=== PATIENT | male | born 1985 | race Caucasian/White ===

== ENCOUNTER → 2023-12-16 | Outpatient (CLI) | payer MEDICAID ==
[2023-12-16 08:18] VITALS: BP 128/80; PULSE 83; RESP 16
--- NOTE | 2023-12-18 07:52 | P.PAINPG ---
PQRS Measure Charge Sheet Comment: HISTORY OF PRESENT ILLNESS: A 38 yr old male as a referral from Wendy ALMAGUER presents today w severe and chronic LBP since Sep 2023 secondary to radiculopathy, spondylosis and facet arthropathy without myelopathy for evaluation. Pt states pain level is provoked at 6 /10 in intensity, constant, localized in the lumbar spine, predominantly axial, achy in character w occasional shooting pain towards the BLEs. Pain is provoked by sitting/ standing for periods > 20 min. Pain is alleviated by physician guided home exercises 4-5 times weekly since Sep 2023, heat, ice, medications (Tramadol #90, Mobic), topical BioFreeze, repositioning and rest . PMH: OA, HTN, Hyperlipidemia, Autism, Sleep Apnea PSH: BL Knee Arthroscopy, Carpal Tunnel, Masectomy SH: Tobacco use, No ETOH abuse, No illicit drug use FH: Fa- Suicide, Mental Health History. Grandmother- CAD All: See list Meds: See list incl Tramadol #90 monthly REVIEW OF ORGAN SYSTEMS: CONSTITUTIONAL: No fevers or chills. No recent weight loss. NEUROLOGICAL: + numbness and tingling along the distal extremities. No seizure disorders or headaches. MUSCULOSKELETAL: + pain PSYCHIATRIC: Denies current depression or suicidal thoughts. Physical Examinations : Constitutional : Cooperative , not in acute distress . Neurologic : Cranial nerve II to XII intact. No focal neurological deficits. Psychiatric : alert & oriented x 3. Matching mood & appropriate affect. Judgment & insight intact. Musculoskeletal : Cervical Spine Motor strength in the deltoid and biceps: Normal right side. Normal Left side Motor strength biceps and the wrist extensors: Normal right side . Normal left side Motor strength in the triceps muscle: Normal right side. Normal left side Deep tendon reflexes: Normal at the biceps. Normal at Brachioradialis. Normal at triceps Vertebral body tenderness to deep palpation over Cervical facet loading test: positive bilaterally Spurling test: positive bilaterally Neck distraction test: positive bilaterally Darian sign: positive bilaterally Lumbar spine Motor strength lower extremities ,thigh and legs 5/5 Right side , 5/5 Left side Deep tendon reflexes : Normal Knee Jerk. Normal Ankle Jerk Vertebral body tenderness over L4 Chapin Test positive BL L4-L5 Lumbar facet Loading Test: positive Right / positive Left Range of motion of the lumbar spine Flexion 30 degrees, extension 10 degrees Straight Leg Raise test: Left/ Right positive at degrees Francis test: positive right / positive left. Severe tenderness over the Sacroiliac joint on the Right / Left sides Gaenslen test: positive bilaterally Seated flexion test: positive bilaterally. Sacral spine : Severe tenderness over the Sacroiliac joint: right side / left side Range of motion: Flexion of the lumbar spine <60 degrees Range of motion: Extension of the lumbar spine <20 degrees Gaenslen's Test positive Francis test: positive right side / left side Thigh Thrust Test Sacral Thrust Test Imaging: MRI non contrast lumbar spine from 11/12/23 reviewed Assessment/ Plan : L3-L5 broad based disc bulges Recommendation of IRIS L4-L5 #1. Risks, benefits of procedure discussed and patient verbalized understanding. Admits to anti- coagulant use or medical history of diabetes. Protocol for discontinuation/ continuation of medications mitul procedure discussed. All questions answered. I have spent greater than 30 minutes on patient care today. Dr Lara was available by phone for the evaluation of this patient. The time was used to review the medical records including relevant urine studies and Prescription history (MAPs), review of the available imaging, evaluation and examination of the patient, coordination of care with the medical staff and if applicable referring physicians, as well as creation of the medical record Controlled Substance Measures - Controlled Substance Measures Is patient prescribed a controlled substance at discharge?: No
== END ==
LOC: PNWHC3 07:46
PROVIDERS: ATTEND Specialist
DX: M51.26 Other intervertebral disc displacement, lumbar region (principal)
CPT/HCPCS: 99202

== ENCOUNTER 2024-01-21 08:32 | Day surgery (SDC) | payer MEDICAID ==
[2024-01-14 16:36] VITALS: BMI 42.7
[~2024-01-21 08:32] MED LIST: LACTATED RINGERS 1,000 ML IV SCH
[2024-01-21 08:52] VITALS: TEMP 97.3
[2024-01-21] MEDS ORDERED: IOPAMIDOL M200 10 ML VIAL ONE (09:24)
[2024-01-21] MEDS ORDERED: methylPREDNISolone ACETATE 80 MG/ML 1 ML VIAL ONE (09:24)
--- NOTE | 2024-01-21 09:30 | P.PCN ---
Date of Procedure: 01/21/24 Procedure(s) Performed: PREOPERATIVE DIAGNOSIS: 1- Lumbar Degenerative Disc Diseases 2-Lumbar radiculopathy POSTOPERATIVE DIAGNOSIS: 1-lumbar degenerative disc disease. 2-lumbar radiculopathy. PROCEDURE 1. Lumbar epidural steroid injection under fluoroscopic guidance at the L4-5 level. (Fluoroscopy imaging was available in radiology department) 2. Lumbar epidurogram. ANESTHESIA: Lidocaine 1% 3 and then only. EBL: Minimal PROCEDURE INDICATION: The patient with low back pain and radiculitis symptoms unresponsive to conservative treatment. Fluoroscopy was used to optimize visualization of the needle placement and to maximize safety. PROCEDURE DESCRIPTION / TECHNIQUE: The patient was seen and identified in the preoperative area. Risks, benefits, complications including but not limited to infections ,bleeding ,allergic reaction to the medications ,nerve damage and not complete pain releife , and alternatives were discussed with the patient. The patient agreed to proceed with the procedure and signed the consent, and vital signs were stable. Patient was taken to the OR and time out was completed. The patient was placed in the prone position on procedure table and a pillow was placed under the abdomen to reduce lumbar lordosis. The lumbosacral area was prepped and draped in the usual sterile fashion.ere closely monitored during the procedure. Vital signs was monitered during the entire procedure. Using anterior-posterior fluoroscopy, the L4-5 interlaminar space was identified and the skin over this site was marked and then infiltrated with 1% lidocaine subcutaneously. Subsequently, a 20-gauge Tuohy epidural needle was inserted and advanced toward the epidural space using the ``Loss of resistance technique and guided by AP and lateral fluoroscopy. The correct needle position in the epidural space was verified with the injection of 2 mL of the water soluble contrast dye Isovue 200 contrast and observing an excellent epidurogram with the epidural spread of the dye, after negative aspiration for blood and CSF and in the absence of paresthesias. Again after negative aspiration, a 6 ml mixture containing 80 mg of Depo-medrol ( Preservetive Free ), and 2 ml of preservative free Normal Saline, and 2 ml of preservative free lidocaine 1% solution was injected and a washout of epidurogram was seen. Needle was withdrawn intact, skin was cleansed, and bandages were applied. COMPLICATIONS: None DISPOSITION / PLANS: The patient was placed in a supine position and transferred to the recovery area in a stable condition for observation. There was no evidence of lower extremity motor or sensory deficit after the procedure. Patient was discharged from the recovery room after meeting discharge criteria. Home discharge instructions were given to the patient by the staff. The patient was reexamined prior to discharge. The patient will schedule a follow up in the clinic in 2-4 weeks.
[2024-01-21 09:51] VITALS: BP 124/60; PULSE 68; RESP 18
--- NOTE | 2024-01-21 10:41 | FL ---
EXAMINATION TYPE: FL guided pain mgmt statistic DATE OF EXAM: 01/21/2024 9:33 AM COMPARISON: Pre Operative Images if available both CT/MRI or plain film CLINICAL INDICATION: Male, 38 years old with history of PAIN; TECHNIQUE: FL guided pain mgmt statistic, multiple fluoroscopic images provided for procedure. Total fluoroscopy time: 2.0 seconds Total submitted images to PACS: 1 DAP: 0.26648 mGym2 Gycm2 uGym2 cGycm2 or equivalent. FINDINGS: Fluoroscopic images during injection for pain management demonstrate multilevel degeneration changes throughout the spine. No evidence for fracture. No acute process identified. IMPRESSION: 1. No evidence for intraoperative complication. 2. Please see the operative/procedural note for further details. [facility], , 01/21/2024 10:39 AM
== END 2024-01-21 10:05 | disposition home or self-care (01) ==
LOC: ORPAIN 08:32
PROVIDERS: ATTEND Specialist
DX: M51.16 Intervertebral disc disorders with radiculopathy, lumbar region (principal); Z88.0 Allergy status to penicillin
CPT/HCPCS: 62323; Q9966; J1010

== ENCOUNTER → 2024-02-20 | Outpatient (CLI) | payer MEDICAID ==
[2024-02-20 08:14] VITALS: BP 145/79; PULSE 81; RESP 16; TEMP 97.5
--- NOTE | 2024-02-20 13:34 | P.PAINPG ---
Objective - Vital Signs Vital signs: Vital Signs Temp 97.5 F L 02/20/24 08:05 Pulse 81 02/20/24 08:05 Resp 16 02/20/24 08:05 BP 145/79 02/20/24 08:05 Pulse Ox 96 02/20/24 08:05 FiO2 Intake & Output 02/19/24 02/20/24 02/20/24 18:59 06:59 18:59 Weight 117.934 kg PQRS Measure Charge Sheet Mode of Arrival: Ambulatory Comment: HISTORY OF PRESENT ILLNESS: A 38 yr old male presents today w severe and chronic LBP since Sep 2023 secondary to radiculopathy, spondylosis and facet arthropathy without myelopathy for evaluation s/p IRIS L4-L5 #1. Pt states he experienced 60% pain relief x 2-3 wks s/p procedure. Pt states pain level is provoked at 6 /10 in intensity, constant, localized in the lumbar spine, predominantly axial, achy in character w occasional shooting pain towards the BLEs. Pain is provoked by sitting/ standing for periods > 20 min. Pain is alleviated by physician guided home exercises 4-5 times weekly since Sep 2023, heat, ice, medication, topical, repositioning and rest . Oswestry axial score of 18. Interventional procedures include IRIS L4-L5 x1 Medications include Tramadol #90, BioFreeze REVIEW OF ORGAN SYSTEMS: CONSTITUTIONAL: No fevers or chills. No recent weight loss. NEUROLOGICAL: + numbness and tingling along the distal extremities. No seizure disorders or headaches. MUSCULOSKELETAL: + pain PSYCHIATRIC: Denies current depression or suicidal thoughts. Physical Examinations : Constitutional : Cooperative , not in acute distress . Neurologic : Cranial nerve II to XII intact. No focal neurological deficits. Psychiatric : alert & oriented x 3. Matching mood & appropriate affect. Judgment & insight intact. Musculoskeletal : Cervical Spine Motor strength in the deltoid and biceps: Normal right side. Normal Left side Motor strength biceps and the wrist extensors: Normal right side . Normal left side Motor strength in the triceps muscle: Normal right side. Normal left side Deep tendon reflexes: Normal at the biceps. Normal at Brachioradialis. Normal at triceps Vertebral body tenderness to deep palpation over Cervical facet loading test: positive bilaterally Spurling test: positive bilaterally Neck distraction test: positive bilaterally Darian sign: positive bilaterally Lumbar spine Motor strength lower extremities ,thigh and legs 5/5 Right side , 5/5 Left side Deep tendon reflexes : Normal Knee Jerk. Normal Ankle Jerk Vertebral body tenderness over L4 Chapin Test positive BL L4-L5 Lumbar facet Loading Test: positive Right / positive Left Range of motion of the lumbar spine Flexion 30 degrees, extension 10 degrees Straight Leg Raise test: Left/ Right positive at degrees Francis test: positive right / positive left. Severe tenderness over the Sacroiliac joint on the Right / Left sides Gaenslen test: positive bilaterally Seated flexion test: positive bilaterally. Sacral spine : Severe tenderness over the Sacroiliac joint: right side / left side Range of motion: Flexion of the lumbar spine <60 degrees Range of motion: Extension of the lumbar spine <20 degrees Gaenslen's Test positive Francis test: positive right side / left side Thigh Thrust Test Sacral Thrust Test Imaging: MRI non contrast lumbar spine from 11/12/23 reviewed Assessment/ Plan : L3-L5 broad based disc bulges Recommendation of interlaminar IRIS L4-L5 #2. Risks, benefits of procedure discussed and patient verbalized understanding. Admits to anti- coagulant use or medical history of diabetes. Protocol for discontinuation/ continuation of medications mitul procedure discussed. All questions answered. I have spent greater than 30 minutes on patient care today. Dr Lara was available by phone for the evaluation of this patient. The time was used to review the medical records including relevant urine studies and Prescription history (MAPs), review of the available imaging, evaluation and examination of the patient, coordination of care with the medical staff and if applicable referring physicians, as well as creation of the medical record - Pain Location Back Non-Pharmacological Interventions: Position/Reposition Pharmacological Interventions: Discuss Pain Med Options Neck Pharmacological Interventions: Discuss Pain Med Options PQRS Narrative: Blood Pressure 145/79 Pain Intensity [Neck] 5 Pain Intensity [Back] 3 Scale Used Numeric (1 - 10) Hx Alcohol Use (MH) No Home Medications: Ambulatory Orders Atorvastatin [Lipitor] 20 mg PO DAILY 01/14/24 Levocetirizine Dihydrochloride [Xyzal] 5 mg PO HS 01/14/24 Meloxicam [Mobic] 15 mg PO DAILY 01/14/24 Testosterone Cypionate [Depo-Testosterone] 40 mg IM DIRECTED 01/14/24 Topiramate [Topiramate ER] 200 mg PO HS 01/14/24 Valsartan/Hydrochlorothiazide [Valsartan-Hctz 80-12.5 mg Tab] 1 each PO DAILY 01/14/24 Vilazodone HCl 40 mg PO DAILY 01/14/24 traMADol HCL 50 mg PO DAILY 01/14/24 valACYclovir HCL [Valacyclovir] 500 mg PO DAILY 01/14/24 Controlled Substance Measures - Controlled Substance Measures Is patient prescribed a controlled substance at discharge?: No
== END ==
LOC: PNWHC3 07:51
PROVIDERS: ATTEND Specialist
DX: M51.369 Other intervertebral disc degeneration, lumbar region without mention of lumbar back pain or lower extremity pain (principal); Z88.0 Allergy status to penicillin
CPT/HCPCS: 99211

== ENCOUNTER → 2024-03-06 | Day surgery (SDC) | payer MEDICAID ==
[2024-03-03 16:25] VITALS: BMI 42.3
[~2024-03-06] MED LIST changes: +IOPAMIDOL M200 10 ML VIAL ONE; +methylPREDNISolone ACETATE 80 MG/ML 1 ML VIAL ONE
[2024-03-06 07:45] VITALS: TEMP 97.8
--- NOTE | 2024-03-06 08:12 | P.PCN ---
Date of Procedure: 03/06/24 (t) Procedure(s) Performed: PREOPERATIVE DIAGNOSIS: 1- Lumbar Degenerative Disc Diseases 2-Lumbar radiculopathy POSTOPERATIVE DIAGNOSIS: 1-lumbar degenerative disc disease. 2-lumbar radiculopathy. PROCEDURE 1. Lumbar epidural steroid injection under fluoroscopic guidance at the L4-5 level. (Fluoroscopy imaging was available in radiology department) 2. Lumbar epidurogram. ANESTHESIA: Lidocaine 1% 3 and then only. EBL: Minimal PROCEDURE INDICATION: The patient with low back pain and radiculitis symptoms unresponsive to conservative treatment. Fluoroscopy was used to optimize visualization of the needle placement and to maximize safety. PROCEDURE DESCRIPTION / TECHNIQUE: The patient was seen and identified in the preoperative area. Risks, benefits, complications including but not limited to infections ,bleeding ,allergic reaction to the medications ,nerve damage and not complete pain releife , and alternatives were discussed with the patient. The patient agreed to proceed with the procedure and signed the consent, and vital signs were stable. Patient was taken to the OR and time out was completed. The patient was placed in the prone position on procedure table and a pillow was placed under the abdomen to reduce lumbar lordosis. The lumbosacral area was prepped and draped in the usual sterile fashion.ere closely monitored during the procedure. Vital signs was monitered during the entire procedure. Using anterior-posterior fluoroscopy, the L4-5 interlaminar space was identified and the skin over this site was marked and then infiltrated with 1% lidocaine subcutaneously. Subsequently, a 20-gauge Tuohy epidural needle was inserted and advanced toward the epidural space using the ``Loss of resistance technique and guided by AP and lateral fluoroscopy. The correct needle position in the epidural space was verified with the injection of 2 mL of the water soluble contrast dye Isovue 200 contrast and observing an excellent epidurogram with the epidural spread of the dye, after negative aspiration for blood and CSF and in the absence of paresthesias. Again after negative aspiration, a 6 ml mixture containing 80 mg of Depo-medrol ( Preservetive Free ), and 2 ml of preservative free Normal Saline, and 2 ml of preservative free lidocaine 1% solution was injected and a washout of epidurogram was seen. Needle was withdrawn intact, skin was cleansed, and bandages were applied. COMPLICATIONS: None DISPOSITION / PLANS: The patient was placed in a supine position and transferred to the recovery area in a stable condition for observation. There was no evidence of lower extremity motor or sensory deficit after the procedure. Patient was discharged from the recovery room after meeting discharge criteria. Home discharge instructions were given to the patient by the staff. The patient was reexamined prior to discharge. The patient will schedule a follow up in the clinic in 2-4 weeks.
[2024-03-06 08:19] VITALS: RESP 16
--- NOTE | 2024-03-06 08:28 | FL ---
EXAMINATION TYPE: FL guided pain mgmt statistic DATE OF EXAM: 03/06/2024 8:19 AM COMPARISON: Pre Operative Images if available both CT/MRI or plain film CLINICAL INDICATION: Male, 38 years old with history of LESI; TECHNIQUE: FL guided pain mgmt statistic, multiple fluoroscopic images provided for procedure. Total fluoroscopy time: 1.8 seconds Total submitted images to PACS: 1 DAP: 0.91402 mGym2 Gycm2 uGym2 cGycm2 or equivalent. FINDINGS: Fluoroscopic images during injection for pain management demonstrate multilevel degeneration changes throughout the spine. No evidence for fracture. No acute process identified. IMPRESSION: 1. No evidence for intraoperative complication. 2. Please see the operative/procedural note for further details. [facility], , 03/06/2024 8:25 AM
[2024-03-06 08:31] VITALS: BP 119/74; PULSE 76
== END ==
LOC: ORPAIN 07:12
PROVIDERS: ATTEND Specialist
DX: M51.16 Intervertebral disc disorders with radiculopathy, lumbar region (principal); Z88.0 Allergy status to penicillin
CPT/HCPCS: 81025; 62323; Q9966; J1010

== ENCOUNTER 2024-04-14 08:40 | Day surgery (SDC) | payer MEDICAID ==
[~2024-04-14 08:40] MED LIST changes: -IOPAMIDOL M200 10 ML VIAL ONE; -methylPREDNISolone ACETATE 80 MG/ML 1 ML VIAL ONE
[2024-04-14 09:22] VITALS: RESP 16; TEMP 97.8
[2024-04-14] MEDS: LACTATED RINGERS 1,000 ML IV SCH (09:29)
[2024-04-14] MEDS: IV FLUID CONTINUATION 1,000 ML IV ONE ×2 (09:30→10:17)
[2024-04-14] MEDS ORDERED: MIDAZOLAM 2 MG/2 ML VIAL ONE (09:49)
[2024-04-14] MEDS ORDERED: ROPIVACAINE 5MG/ML 20ML VIAL ONE (09:49)
[2024-04-14] MEDS ORDERED: DEXAMETHASONE SOD PHOSPHATE 10 MG/ML 1 ML VIAL ONE (09:49)
[2024-04-14] MEDS ORDERED: fentaNYL (PF) 50 MCG/ML 2 ML AMP ONE (09:49)
--- NOTE | 2024-04-14 10:15 | P.PCN ---
Date of Procedure: 04/14/24 Description of Procedure: PREOPERATIVE DIAGNOSIS: Cervical Facet syndrome /cervical spondylosis without myelopathy. POSTOPERATIVE DIAGNOSIS: Cervical Facet syndrome /cervical spondylosis without myelopathy. PROCEDURES: Left Radiofrequency thermocoagulation of C3-C4, and C4-C5 medial branches, with fluoroscopic guidance, SURGEON: Jack Mayfield ANESTHESIA: Local 3 mL of 1% lidocaine, and IV sedation: Versed 2mg , and [id number] mcg Sedation supervision start time : 948 sedation Supervision end time: 1007 EBL: None Specimen removed: None Fluoroscopic image: Saved to electronic medical records. PROCEDURE INDICATION: The patient returns for cervical RFTC following previous positive diagnostic nerve blocks. Patient tried conservative therapy with marginal pain relief. PROCEDURE DESCRIPTION: The patient was seen and identified in the preoperative area. Risks, benefits, complications, and alternatives were discussed with the patient. The patient agreed to pursue with the procedure and signed the consent. IV was started and vital signs were stable. Patient was taken to the procedure room and time out was completed. The patient was placed in the prone position on the procedure table and cervical area was prepped with ChloraPrep 2 and draped in the usual sterile fashion. Critical pause was taken. Vital signs were closely monitored during the procedure. Using AP fluoroscopy, the waists of lateral margins of C3, C4, and C5 were identified and localized with 1 mL of 1% lidocaine. Used 20 -bx radiofrequency cannula with a 10-mm active tip. Using the posterior approach, radiofrequency cannulas were guided by anterior posterior fluoroscopy to the waists of the lateral masses of C3, C4, C5 Needle tip position was confirmed at the centroid of the trapezoids of C3, C4, C5 with lateral fluoroscopy. Each site then underwent motor testing was done at 2 Hz and 0 to 2.5 volt with local stimulation, but no radicular symptoms down the arm. After negative aspiration for blood and CSF , 0.5 mill of block solution were given, and then C3, C4,C5 sites underwent radiofrequency thermocoagulation at 80 degrees celsius for 90 seconds. After thermocoagulation, the C3, C4, C5 . Block solution contained 10 MG of dexamethasone and 3 mL of preservative-free ropivacaine 0. 5%. After radiofrequency ablation cannulas were retracted approximately 1 cm and then upon further withdrawal of the needles, the skin was infiltrated with 1 mL of 0.5% ropivacaine at each level for longer skin pain relief. Skin was cleansed and bandages were applied. COMPLICATIONS: None. DISPOSITION / PLANS: The patient was placed in a supine position and transferred to the recovery area in a stable condition for observation and was discharged from the recovery room after meeting discharge criteria. Home discharge instructions given to the patient by the staff. The patient was reexamined prior to discharge. The patient will schedule a left side cervical radiofrequency ablation in 4 weeks.
--- NOTE | 2024-04-14 10:29 | FL ---
EXAMINATION TYPE: FL guided pain mgmt statistic DATE OF EXAM: 04/14/2024 CLINICAL INDICATION: Male, 38 years old with history of RF CERVICAL; PHH, neck pain. TECHNIQUE: Fluoroscopy. COMPARISON: None. FINDINGS: Fluoroscopic guidance was provided during pain relief procedure performed by Dr. Mayfield. A total of 9.5 seconds of fluoroscopic time was utilized during the procedure and 3 spot images are acquired. Images acquired shows needle localization at Several levels in the cervical spine. Facet ar thropathy is suspected. Total DAP: 0.66461 mGym2. IMPRESSION: As Above. [facility], , 04/14/2024 10:27 AM
[2024-04-14 10:33] VITALS: BP 136/85; PULSE 67
== END 2024-04-14 10:47 | disposition home or self-care (01) ==
LOC: ORPAIN 08:40
DX: M47.812 Spondylosis without myelopathy or radiculopathy, cervical region (principal); Z88.0 Allergy status to penicillin; Z79.1 Long term (current) use of non-steroidal anti-inflammatories (NSAID)
CPT/HCPCS: 81025; 64633; 64634; 99152; J2250; J1100; J3010; J2795

== ENCOUNTER → 2024-05-04 | Outpatient (CLI) | payer MEDICAID ==
[2024-05-04 08:05] VITALS: BP 138/84; PULSE 103; RESP 16; TEMP 96.7
--- NOTE | 2024-05-04 15:14 | P.PAINPG ---
PQRS Measure Charge Sheet Comment: HISTORY OF PRESENT ILLNESS: A 38 yr old male presents today w severe and chronic LBP and neck pain since Sep 2023 secondary to radiculopathy, spondylosis and facet arthropathy without myelopathy for evaluation s/p L RFA C3-C4/C4-C5. Pt states he experienced 100% pain relief s/p procedure. Pt states pain level is provoked at 4 /10 in intensity, intermittent, localized in the L cervical spine, predominantly axial, achy in character without shooting pain. Pain is provoked by hyperextension. Pain is alleviated by physician guided home stretches daily since Spring 2022 (cervical), physician guided home exercises 4-5 times weekly since Sep 2023 (lumbar), heat, ice, medication, topical, repositioning and rest . Cervical disability score of 22. Interventional procedures include IRIS L4-L5 x1, L RFA C3-C5 x2 (05/10, 04/14) Medications include Tramadol #90, BioFreeze REVIEW OF ORGAN SYSTEMS: CONSTITUTIONAL: No fevers or chills. No recent weight loss. NEUROLOGICAL: + numbness and tingling along the distal extremities. No seizure disorders or headaches. MUSCULOSKELETAL: + pain PSYCHIATRIC: Denies current depression or suicidal thoughts. Physical Examinations : Constitutional : Cooperative , not in acute distress . Neurologic : Cranial nerve II to XII intact. No focal neurological deficits. Psychiatric : alert & oriented x 3. Matching mood & appropriate affect. Judgment & insight intact. Musculoskeletal : Cervical Spine Motor strength in the deltoid and biceps: Normal right side. Normal Left side Motor strength biceps and the wrist extensors: Normal right side . Normal left side Motor strength in the triceps muscle: Normal right side. Normal left side Deep tendon reflexes: Normal at the biceps. Normal at Brachioradialis. Normal at triceps Vertebral body tenderness to deep palpation over Cervical facet loading test: positive BL C3-C4/ C4-C5 Spurling test: positive bilaterally Neck distraction test: positive bilaterally Darian sign: positive bilaterally Lumbar spine Motor strength lower extremities ,thigh and legs 5/5 Right side , 5/5 Left side Deep tendon reflexes : Normal Knee Jerk. Normal Ankle Jerk Vertebral body tenderness over L4 Chapin Test positive BL L4-L5 Lumbar facet Loading Test: positive Right / positive Left Range of motion of the lumbar spine Flexion 30 degrees, extension 10 degrees Straight Leg Raise test: Left/ Right positive at degrees Francis test: positive right / positive left. Severe tenderness over the Sacroiliac joint on the Right / Left sides Gaenslen test: positive bilaterally Seated flexion test: positive bilaterally. Sacral spine : Severe tenderness over the Sacroiliac joint: right side / left side Range of motion: Flexion of the lumbar spine <60 degrees Range of motion: Extension of the lumbar spine <20 degrees Gaenslen's Test positive Francis test: positive right side / left side Thigh Thrust Test Sacral Thrust Test Imaging: MRI non contrast lumbar spine from 11/12/23 reviewed Assessment/ Plan : L3-L5 broad based disc bulges, Cervical radiculopathy Will manage residual pain and may RTC on an as needed basis. All questions answered. I have spent greater than 30 minutes on patient care today. Dr Lara was available by phone for the evaluation of this patient. The time was used to review the medical records including relevant urine studies and Prescription history (MAPs), review of the available imaging, evaluation and examination of the patient, coordination of care with the medical staff and if applicable referring physicians, as well as creation of the medical record PQRS Narrative: Hx Alcohol Use (MH) No Home Medications: Ambulatory Orders Atorvastatin [Lipitor] 20 mg PO DAILY 01/14/24 Levocetirizine Dihydrochloride [Xyzal] 5 mg PO HS 01/14/24 Meloxicam [Mobic] 15 mg PO DAILY 01/14/24 Testosterone Cypionate [Depo-Testosterone] 40 mg IM SUWE 01/14/24 Topiramate [Topiramate ER] 200 mg PO HS 01/14/24 Valsartan/Hydrochlorothiazide [Valsartan-Hctz 80-12.5 mg Tab] 1 each PO DAILY 01/14/24 Vilazodone HCl 40 mg PO DAILY 01/14/24 traMADol HCL 50 mg PO DAILY 01/14/24 valACYclovir HCL [Valacyclovir] 500 mg PO DAILY 01/14/24 Controlled Substance Measures - Controlled Substance Measures Is patient prescribed a controlled substance at discharge?: No
== END ==
LOC: PNWHC3 07:40
PROVIDERS: ATTEND Specialist
DX: M54.12 Radiculopathy, cervical region (principal); M51.360 Other intervertebral disc degeneration, lumbar region with discogenic back pain only; Z88.0 Allergy status to penicillin
CPT/HCPCS: 99212